=== PATIENT | male | born 1955 | race Caucasian/White ===

== ENCOUNTER 2018-06-12 16:17 | Observation (INO) | payer MEDICARE ==
[~2018-06-12] VITALS: Ht 182.9 cm; Wt 63.5 kg
--- NOTE | ~2018-06-12 | CN ---
PATIENT NAME:ELIJAH DIAMOND MEDICAL RECORD: [id number] : 59 LOCATION:D. D.2116 ADMIT DATE: 06/12/18 ACCOUNT: [id number] CONSULTING PHYSICIAN: CHARLEEN ELIZALDE MD REFERRING PHYSICIAN: CHARLEEN ELIZALDE MD DATE OF CONSULTATION: 06/13/2018 HISTORY OF PRESENT ILLNESS: A 62-year-old gentleman with a known history of coronary artery disease, status post PTCA in the LAD, has a history of hypertension, hyperlipidemia, actually has been doing fairly well, noticing more dyspnea, chest tightness with increasing heat, had onset of rest symptomology yesterday with chest tightness and pressure, subsequently presented to the ER. Noted to have elevated troponin consistent with NSTEMI. He is admitted further evaluation. PAST MEDICAL HISTORY: Includes: 1. Coronary artery disease as described above. 2. Hypertension. 3. Hyperlipidemia. ALLERGIES: FLEXERIL. HOME MEDICATIONS: Include Lipitor 20 every day, lisinopril 5 every day, aspirin 81 every day, Ativan 1 mg q.h.s., Percocet 10/325 q.6 hours, Nexium 20 every day. SOCIAL HISTORY: Smokes 3-4 cigars a day. Social drinker. Easily takes care of his ADLs. REVIEW OF SYSTEMS: The patient reports easy bruising but reports no swollen glands. The patient reports no fever, no night sweats, no significant weight gain, no significant weight loss. No significant exercise tolerance. The patient reports no dry eyes, no irritation, no vision change. Patient reports no difficulty hearing and no ear pain. Patient reports no frequent nose bleeds or nose and sinus problems. Patient reports on arm pain on exertion. No shortness of breath while lying down. No history of heart murmur. Patient reports no cough, no wheezing or coughing up blood. Patient reports no abdominal pain, no vomiting. Normal appetite. No diarrhea and not vomiting blood. No nausea and no constipation. Patient reports no incontinence. No difficulty urinating. No hematuria. No increased frequency. Patient reports no muscle aches. No weakness, no arthralgias, no back pain. No swelling of the extremities. Patient reports no abnormal mole, no jaundice, no rashes. Reports no loss of consciousness. No weakness and no numbness. No seizures, dizziness, or headaches. The patient reports no depression, no sleep disturbance, feeling safe in a relationship and no alcohol abuse. Patient reports on fatigue. Reports no runny nose or sinus pressure. No itching, no hives, and no frequent sneezing. PHYSICAL EXAMINATION: GENERAL: Pleasant gentleman in no acute distress, appears stated age. VITAL SIGNS: Blood pressure 102/45, pulse 69 regular. HEENT: Normocephalic, atraumatic. NECK: No bruits noted. HEART: Regular, II/ systolic ejection murmur, questionable S4 gallop. LUNGS: Few expiratory wheezes. CONSULT REPORT [id number] ELIJAH DIAMOND ABDOMEN: Soft, nontender. EXTREMITIES: Pulses 2+. There is no edema. DIAGNOSTIC DATA: ECG shows nonspecific ST-T changes inferiorly with poor R-wave progression. IMPRESSION: NSTEMI. PLAN: For diagnostic angiography, intervention based on above. TRANSINT:[id number] Voice Confirmation ID: [id number] DOCUMENT ID: [id number] CHARLEEN ELIZALDE MD at 1505 CC: [id number] DICTATION DATE: 06/13/18827 EVENT MARKETING INTERN: 06/13/18 1109 DIS IN 06/13/18 [facility] [address] [place] [address]
--- NOTE | ~2018-06-12 | OP ---
PATIENT NAME: ELIJAH DIAMOND MEDICAL RECORD: [id number] :59 LOCATION:D.M2 D.2116 ADMISSION DATE:06/12/18 SURGEON: CHARLEEN ELIZALDE MD DATE OF OPERATION: 06/13/2018 PROCEDURE: Left heart catheterization, selective coronary angiography, right femoral artery approach. CATHETERS: A 5-Mongolian sheath, 5/4 left and right Ilan, 5/4 pig. The procedure was well tolerated and the patient returned to lyles. Sheath removed. TR band placed. FINDINGS: Left ventriculography in 30-degree YANES view: Normal wall motion and normal systolic function. CORONARY ANATOMY: LEFT MAIN: Left main is free of disease. LAD: Free of disease in the diagonal system. Previously placed stent is widely patent. CIRCUMFLEX: Free of disease in the marginal system. RIGHT CORONARY ARTERY: Rudimentary, free of disease. IMPRESSION: Patent stent. Normal coronary artery anatomy, otherwise. Normal LV function. TRANSINT:[id number] Voice Confirmation ID: [id number] DOCUMENT ID: [id number] CHARLEEN ELIZALDE MD at 1505 CC: [id number] DICTATION DATE: 06/13/18 1342 [place] OPERATOR: 06/13/18 1416 DIS IN 06/13/18 [address] [place] [address]
--- NOTE | ~2018-06-12 | HEMODYNAMI ---
PATIENT:ELIJAH DIAMOND MEDICAL RECORD: [id number] : 59 LOCATION:[facility] D.2116 ADMISSION DATE: 06/12/18 Generatedon:06/13/201813:41 Patient name: ELIJAH DIAMOND Patient #: [id number] SSN: : 1955 Date of study: 06/13/2018 Page: Of Hemodynamic Procedure Report Patient Data Patient Demographics Procedure consent was obtained First Name: ELIJAH Gender: Male Last Name: LOBO : 1955 Patient #: [id number] Age: 62 year(s) Race: Unknown Additional ID: [id number] Contact details [address]: [address] [place] [address] State: [place] City: [address] Zip code: [address] Past Medical History Allergies Allergen Reaction Date Comments Reported Other allergy 06/13/2018 flexeril Admission Admission Data Admission Date: 06/12/2018 Admission Time: 18:15 [facility] Results Lab Result Date: 06/13/2018 Lab Result Time: 4:46 Biochemistry Name Units Result Min Max BUN mg/dl 12 --(-*--)-- 7 18 Creatinine mg/dl 1.3 --(---*)-- 0.6 1.3 CBC Name Units Result Min Max Hematocrit % 44.3 --(*---)-- 42 54 Hemoglobin g/dl 15.5 --(-*--)-- 13.5 17.5 Procedure Procedure Types Cath Procedure Diagnostic Procedure LHC C w/Coronaries Procedure Description Procedure Date Procedure Date: 06/13/2018 Procedure Start Time: 13:25 Procedure End Time: 13:38 Procedure Staff Name Function South Desai MD Performing Physician Domenic Clarke RT Monitor Franck Price RN Nurse Serena Ellis RT Scrub Procedure Data Cath Procedure Fluoroscopy Diagnostic fluoroscopy Total fluoroscopy Time: 2.3 time: 2.3 min min Diagnostic fluoroscopy Total fluoroscopy dose: 196 dose: 196 mGy mGy Contrast Material Contrast Material Type Amount (ml) Isovue 300 57 Entry Location Entry Primary Successful Side Size Upsize Upsize Entry Closure Campbell ccessful Closure Location (Fr) 1 (Fr) 2 (Fr) Remarks Device Remarks Radial Right 6 Fr Mechanical artery Short Compression Estimated blood loss: 5 ml Diagnostic catheters Device Type Used For End Catheter Placement DIAGNOSTIC Pigtail 5Fr Procedure catheter ([id number]) DIAGNOSTIC Barwick 110cm 5 Procedure Fr catheter ([id number]) Procedure Complications No complications Procedure Medications Medication Administration Route Dosage 0.9% NaCl I.V. 100 ml/hr Oxygen etCO2 Nasal cannula 2 l/min Heparin Flush Bag added to field 2 bags (1000units/500ml NS) Lidocaine 2% added to field 20 Radial Cocktail added to field 1 syringe (Verapomil 2mg/Nitro 400mcg/Heparin 1500units) Versed I.V. 2 mg Fentanyl I.V. 100 mcg Hemodynamics Rest HGB: 15.5 (g/dl) Heart Rate: 78 (bpm) Pressure Samples Time Site Value (mmHg) Purpose Heart Use Rate(bpm) 13:33 LV 133/-14,7 Snapshot 90 13:34 AO 103/60(80) Pullback 85 Gradients Valve Time Site Site 2 Mean SEP/DFP Peak To Heart Use 1 (mmHg) (sec/min) Peak Rate (mmHg) (bpm) Aortic 13:34 LV AO 8 11 85 103/60(80) Calculations Valve P-P Mean Valve Index Valve Source Name Gradient Area Flow (cm2) Aortic 8 8 Snapshots Pre Cath Intra NCS Post Cath Vital Signs Time Heart Resp SPO2 etCO2 NIBP (mmHg) Rhythm Pain Sedation Rate (ipm) (%) (mmHg) Status Level (bpm) 13:10:04 73 20 98 0 148/84(121) NSR 0 (11) 10(A) , No pain 13:14:45 77 17 95 38.9 114/73(94) NSR 0 (11) 10(A) , No pain 13:19:19 82 18 100 38.9 121/69(99) NSR 0 (11) 10(A) , No pain 13:23:53 73 16 100 41.1 115/73(102) NSR 0 (11) 10(A) , No pain 13:28:30 77 17 100 44.8 103/62(79) NSR 0 (11) 10(A) , No pain 13:33:03 87 17 99 44.1 95/66(77) NSR 0 (11) 10(A) , No pain 13:37:31 84 19 99 41.1 110/71(82) NSR 0 (11) 10(A) , No pain Medications Time Medication Route Dose Verified Delivered Reason Notes E ffectiveness by by 13:10:55 0.9% NaCl I.V. 100 Franck Franck Per ml/hr Lorigan Lorigan physician RN RN 13:11:04 Oxygen etCO2 2 l/min Franck Franck Per Nasal Lorigan Lorigan physician cannula RN RN 13:11:18 Heparin Flush added 2 bags Franck Franck used for Bag to Lorigan Lorigan procedure (1000units/500ml field RN RN NS) 13:11:29 Lidocaine 2% added 20ml Franck Franck for local to vial Lorigan Lorigan anesthetic field RN RN 13:11:40 Radial Cocktail added 1 Franck Franck used for (Verapomil to syringe Lorigan Lorigan procedure 2mg/Nitro field RN RN 400mcg/Heparin 1500units) 13:25:06 Versed I.V. 2 mg Franck Franck for Lorigan Lorigan sedation RN RN 13:25:15 Fentanyl I.V. 100 mcg Franck Franck for Lorigan Lorigan sedation RN manager multimedia Log Time Note 12:57:27 Diagnostic Cath status Elective 12:57:29 Serena Counts RT(R) sent for patient. Start room use. 12:57:30 Time tracking: Regular hours (M-F 7:00 - 5:00) 12:57:34 Plan of Care:Hemodynamics will remain stable., Cardiac rhythm will remain stable., Comfort level will be maintained., Respiratory function will remain adequate., Patient/ family verbilizes understanding of procedure., Procedure tolerated without complication., Recovers from procedure without complications.. 13:03:10 Patient received from Med II to CCL 1 Alert and oriented. Tansferred to table in Supine position. 13:03:11 Warm blankets applied, and blayne hugger turned on for patient comfort. 13:03:11 Correct patient and procedure confirmed by team. 13:03:13 Signed procedure consent form obtained from patient. 13:03:13 ECG and BP/O2 sat monitors applied to patient. 13:03:14 Pre-procedure instructions explained to patient. 13:03:15 Pre-op teaching completed and patient verbalized understanding. 13:03:16 Family in patients room. 13:03:17 Patient NPO since Midnight. 13:09:14 Vital chart was started 13:10:55 0.9% NaCl 100 ml/hr I.V. was administered by Franck Price RN; Per physician; 13:11:04 Oxygen 2 l/min etCO2 Nasal cannula was administered by Franck Price RN; Per physician; 13:11:18 Heparin Flush Bag (1000units/500ml NS) 2 bags added to field was administered by Franck Price RN; used for procedure; 13:11:29 Lidocaine 2% 20ml vial added to field was administered by Franck Price RN; for local anesthetic; 13:11:40 Radial Cocktail (Verapomil 2mg/Nitro 400mcg/Heparin 1500units) 1 syringe added to field was administered by Franck Price RN; used for procedure; 13:14:30 Baseline sample Acquired. 13:15:32 Rhythm: sinus rhythm 13:15:34 Full Disclosure recording started 13:15:50 H&P Date Dictated: 06/12/2018 Within 30 days and on chart.. 13:16:01 Patient allergic to Other allergyflexeril 13:16:02 Is the patient allergic to Iodine/contrast media? No. 13:16:04 Is patient on blood thinner?Yes 13:16:06 ACC The patient was administered the following blood thiners within the last 24 hours: ACCPlavix 13:16:08 Patient diabetic? No. 13:16:12 Previous problem with sedation/anesthesia? No ? 13:16:15 Snore? Yes 13:16:17 Sleep apnea? No 13:20:11 Deviated septum? No 13:20:12 Opens mouth fully? Yes 13:20:13 Sticks out tongue? Yes 13:20:16 Airway obstruction? Yes COPD 13:20:18 Dentures? No ? 13:20:23 Modified Stuart's test Ulnar < 7 seconds 13:20:25 Patient pain scale 0/10 ?. 13:20:31 IV patent on arrival in left forearm with 0.9% NaCl at [facility]. 13:21:20 Lab Result : BUN 12 mg/dl 13:: Lab Result : Creatinine 1.3 mg/dl 13:: Lab Result : Hemoglobin 15.5 g/dl 13:: Lab Result : Hematocrit 44.3 % 13:: Lab results completed and on chart. 13::25 Right Radial & Right Groin area was prepped with chlora-prep and draped in sterile fashion 13:: Alarms reviewed by R. N. 13:: Sharps counted by scrub and verified by R.N. 13::29 Use device set Radial Dx or PCI 13:21:30 ACIST Syringe (43949) opened to sterile field. 13:21:40 Medline Cath Pack ([id number]) opened to sterile field. 13:21:41 Bag Decanter (2002S) opened to sterile field. 13:21:43 ACIST Hand Control (29972) opened to sterile field. 13:21:43 ACIST Manifold (76720) opened to sterile field. 13:21:44 Tegaderm 4 x 4 (1626W) opened to sterile field. 13:21:46 MBrace Wrist Support ([id number]) opened to sterile field. 13:21:48 SHEATH 6Fr Prelude Radial ([id number]) opened to sterile field. 13:21:49 DIAGNOSTIC WIRE .035 260cm J wire (071241) opened to sterile field. 13:22:00 Physician arrived 13:: --------ALL STOP TIME OUT------ 13:22:01 Final Timeout: patient, procedure, and site verified with staff and physician. All members of the team are in agreement. 13:22:02 Right Radial & Right Groin site verified by team. 13:22:05 Physical assessment completed. ASA score P 2 - A patient with mild systemic disease as per South Desai MD. 13:22:07 Sedation plan: IV Moderate Sedation Medication:Versed, Fentanyl 13:25:06 Versed 2 mg I.V. was administered by Franck Price RN; for sedation; 13:25:15 Fentanyl 100 mcg I.V. was administered by Franck Price RN; for sedation; 13:25:29 Procedure started. 13:25:33 Local anesthetic to right radial artery with Lidocaine 2% by South Desai MD.INITIAL ACCESS ONLY 13:26:52 Zero performed for pressure channel P1 13:27:49 A 6 Fr Short sheath was inserted into the Right Radial artery 13:29:45 A DIAGNOSTIC Barwick 110cm 5 Fr catheter (490082) was advanced over the wire and used for Procedure. 13:30:16 LCA angiography performed. 13:31:17 RCA angiography performed. 13:31:30 Catheter exchanged over wire. 13:31:40 A DIAGNOSTIC Pigtail 5Fr catheter ([id number]) was advanced over the wire and used for Procedure. 13:33:51 LV gram done using YANES 13:33:53 Injector settings: Ml/sec: 10, Volume: 20, 13:34:06 EF : 55 % 13:34:36 TR BAND Standard ([id number]) opened to sterile field. 13:34:40 Catheter removed. 13:34:46 Sheath removed intact; hemostasis achieved with Mechanical Compression to the Right Radial artery. 13:34:48 Procedure ended.(Physican Out) 13:35:04 Fluoroscopy time 02.30 minutes. 13:35:08 Fluoroscopy dose: 196 mGy 13:35:08 Flurop Dose total: 196 13:35:12 Contrast amount:Isovue 300 57ml. 13:35:13 Sharps counted by scrub and verified by R.N. 13:36:39 TR band inflated with 12cc of air. 13:36:42 Insertion/operative site no bleeding no hematoma. 13:36:43 Post Procedure Pulses reassessed and unchanged 13:36:45 Post-procedure physical assessment completed. ASA score P 2 - A patient with mild systemic disease as per South Desai MD. 13:36:47 Post procedure rhythm: unchanged. 13:36:50 Estimated blood loss: 5 ml 13:36:51 Post procedure instruction explained to patient.Patient verbalizes understanding. 13:36:52 Patient needs reinforcement of post procedure teaching. 13:38:07 Procedure and supply charges have been captured, reviewed, submitted and are correct. 13:38:09 Procedure Complication : No complications 13:38:11 Vital chart was stopped 13:38:11 See physician's report for complete and final results. 13:38:14 Report given to PCU. 13:38:16 Patient transfered to PCU with Stretcher. 13:38:18 Procedure ended. 13:38:18 Full Disclosure recording stopped 13:38:23 End room use (Document Last) Device Usage Item Name Manufacture Quantity Catalog Number Hospital Part Current M inimal Lot# / Charge Number Stock Stock Serial# Code ACIST Syringe Acist 1 58724 325584 [id number] [id number] 2 0 (98968) [employer] Medline Cath Cardinal 1 [id number] 272971 40367 632523 5 Pack Health ([id number]) Bag Decanter Microtek 1 2001S 478117 40368 713656 5 (2001S) Medical Inc. ACIST Hand Acist 1 53052 883787 852837 029003 5 Control (98721) [employer] Inc ACIST Manifold Acist 1 91154 233413 874351 131998 5 (52602) [employer] Inc Tegaderm 4 x 4 3M 1 1626W 603635 374647 309382 5 (1626W) MBrace Wrist Advanced 1 140-0250-00 872590 92560 969323 5 Support Vascular ([id number]) Dynamics SHEATH 6Fr Merit 1 [id number] 436263 907297 667136 5 Prelude Radial Medical ([id number]) DIAGNOSTIC WIRE St Christian 1 273158 646121 807370 140229 3 0 .035 260cm J wire (003570) DIAGNOSTIC Cardinal 1 [id number] 058912 318979 430742 5 Pigtail 5Fr Health catheter (054102F) DIAGNOSTIC Terumo 1 40-2783 645802 366664 277766 5 Barwick 110cm 5 Fr catheter (412144) TR BAND Terumo 1 [id number] 594917 911909 030139 4 0 Standard ([id number]) Signature Audit [place] Stage Time Signature Unsigned Intra-Procedure 06/13/2018 Domenic Clarke 1:40:59 PM RT(R) Signatures Monitor : Domenic Clarke RT Signature : Date : Time : [address] [id number] [place] [address]
[~2018-06-12 16:17] MED LIST: ASPIRIN325 MG PO; ATIVAN1 MG PO; LIPITOR20 MG PO; LISINOPRIL10 MG PO; NAPROSYN500 MG PO; NEURONTIN 300300 MG PO; NEXIUM20 MG PO; PERCOCET 10/3251 TA1 PO; PLAVIX75 MG PO; SYNTHROID175 MCG PO; WELLBUTRIN SR150 MG PO; ZYRTEC10 MG PO
[2018-06-12] MEDS ORDERED: VIIBRYD20 MG PO (16:23)
[2018-06-12 17:00] LABS: HEMATOCRIT 49.9 % (42.0-54.0); HEMOGLOBIN 17.6 g/dL (13.5-17.5); LYMPHOCYTES 35.8 % (15-50); MCH 32.2 pg (26.0-34.0); MCHC 35.3 g/dL (31.0-37.0); MCV 91.4 fL (80.0-100.0); MEAN PLATELET VOLUME 9.1 fL (7.4-10.4); NEUTROPHILS 52.5 % (40-80); PLATELET COUNT 228 10x3/uL (130-400); RBC 5.46 10x6/uL (4.20-6.10); RDW 13.4 % (11.5-14.5); WBC 6.7 10x3/uL (4.8-10.8)
[2018-06-12 17:25] LABS: ALKALINE PHOSPHATASE 66 U/L (46-116); ALT (SGPT) 22 U/L (10-68); BILIRUBIN - TOTAL 0.46 mg/dL (0.2-1.3); CALC OSMOLALITY 271 mosm/kg (275-300); CALCIUM 9.7 mg/dL (8.5-10.1); CHLORIDE - SERUM 98 mmol/L (98-107); CREATININE - SERUM 1.3 mg/dL (0.6-1.3); GLUCOSE 134 mg/dL (74-106); POTASSIUM - SERUM 3.5 mmol/L (3.5-5.1); PROTEIN - SERUM 7.9 g/dL (6.4-8.2); SODIUM 135 mmol/L (136-145); UREA NITROGEN 12 mg/dL (7-18); eGFR NON AFRICAN AMERICAN 60 mL/min (90-120)
[2018-06-12 17:41] LABS: CKMB 0.8 U/L (0.0-3.6)
[2018-06-12 17:54] LABS: TROPONIN-I 0.096 ng/mL (0.000-0.060)
[2018-06-12 19:30] VITALS: BP 99/56
[2018-06-12 21:35] VITALS: BP 101/63
[2018-06-12 22:09] LABS: CKMB 1.4 U/L (0.0-3.6); CREATINE KINASE 70 UL (21-232)
[2018-06-12 22:10] LABS: TROPONIN-I 0.122 ng/mL (0.000-0.060)
[2018-06-12] MEDS ORDERED: NEXIUM20 MG PO (23:14)
[2018-06-12] MEDS ORDERED: ALEVE220 MG PO (23:15)
[2018-06-12 23:30] VITALS: BP 101/63; Ht 182.9 cm; Wt 63.5 kg
[2018-06-13 01:10] VITALS: BP 97/66
[2018-06-13 05:05] VITALS: BP 100/60
[2018-06-13 05:40] LABS: CKMB 1.5 U/L (0.0-3.6); CREATINE KINASE 94 UL (21-232)
[2018-06-13 05:41] LABS: TROPONIN-I 0.088 ng/mL (0.000-0.060)
[2018-06-13 08:16] VITALS: BP 102/45
[2018-06-13 08:41] LABS: BASOPHILS 0.3 % (0-2); EOSINOPHILS 4.2 % (0-7); HEMATOCRIT 44.3 % (42.0-54.0); HEMOGLOBIN 15.5 g/dL (13.5-17.5); IMMATURE GRANULOCYTES 0.3 % (0-5); LYMPHOCYTES 41.2 % (15-50); MCH 32.6 pg (26.0-34.0); MCV 93.3 fL (80.0-100.0); MEAN PLATELET VOLUME 9.8 fL (7.4-10.4); MONOCYTES 7.2 % (2-11); NEUTROPHILS 46.8 % (40-80); PLATELET COUNT 198 10x3/uL (130-400); RBC 4.75 10x6/uL (4.20-6.10); RDW 13.2 % (11.5-14.5); WBC 7.1 10x3/uL (4.8-10.8)
[2018-06-13 08:46] LABS: CALCIUM 8.6 mg/dL (8.5-10.1); CARBON DIOXIDE 20.2 mmol/L (21.0-32.0); CHLORIDE - SERUM 104 mmol/L (98-107); GLUCOSE 104 mg/dL (74-106); SODIUM 139 mmol/L (136-145); eGFR NON AFRICAN AMERICAN 81 mL/min (90-120)
[2018-06-13 08:49] LABS: CALC OSMOLALITY 275 mosm/kg (275-300); POTASSIUM - SERUM 4.2 mmol/L (3.5-5.1); UREA NITROGEN 8 mg/dL (7-18)
[2018-06-13 11:14] VITALS: BP 105/52
[2018-06-13 15:29] VITALS: BP 133/85
== END 2018-06-13 18:14 | disposition home or self-care (01) ==
LOC: D.ER 16:17 → OBSVTIME 18:15 → D.M2 18:15 → D.EDHOLD 18:15 → D.M2 18:57
PROVIDERS: Emergency Medicine; Internal Medicine Interventional Cardiology
DX: I21.4 Non-ST elevation (NSTEMI) myocardial infarction (principal); I25.10 Atherosclerotic heart disease of native coronary artery without angina pectoris; E78.5 Hyperlipidemia, unspecified; I10 Essential (primary) hypertension

== ENCOUNTER → 2020-01-27 10:41 | Outpatient (CLI) | payer MEDICARE, MEDICAID ==
[2018-06-12 23:30] VITALS: BMI 19.0
[~2020-01-27 10:41] MED LIST changes: +ALEVE220 MG PO; +VIIBRYD20 MG PO
== END | disposition home or self-care (01) ==
LOC: D.LABREF 10:41
PROVIDERS: ATTEND Orthopaedic Surgery
DX: M16.12 Unilateral primary osteoarthritis, left hip (principal)